=== PATIENT | female | born 1990 | race Caucasian/White ===

== ENCOUNTER 2016-07-18 23:06 | Emergency (ER) | payer OTHER ==
[~2016-07-18 23:06] MED LIST: NS 1,000 ML IV ONE
[2016-07-18] MEDS ORDERED: fentaNYL 100 MCG/2 ML INJ IVP ONE (23:10)
--- NOTE | 2016-07-18 23:13 | EDPHY ---
H & P Time Seen by Provider: 07/18/16 23:09 HPI/ROS: CHIEF COMPLAINT: Right elbow injury possible dislocation HISTORY OF PRESENT ILLNESS: 25-year-old female arrives via ambulance complaining of acute right elbow pain, possible dislocation after she was in door Walker ring height of approximately 9 feet, landed on her outstretched right hand, complaining of immediate right elbow pain, possible dislocation. She was splinted in 90 degrees by EMS, given Versed and fentanyl. Complaining of continued pain. No paresthesia. No proximal distal pain or injury. No head injury. No wrist pain or injury. PHYSICAL EXAM (Prior to examination, patient consented to physical exam, hands were washed and my usual and customary physical exam procedures followed) 1) GENERAL: Well-developed, well-nourished, alert and oriented. Appears to be in no acute distress. 2) HEAD: Normocephalic 3) HEENT: Pupils equal, round, reactive to light bilaterally. 4) LUNGS: Breathing comfortably. 5) MUSCULOSKELETAL: Right upper extremity posterior same splint in place. Soft compartments. Normal coloration. There is step-off deformity posterior elbow consistent with dislocation 6) SKIN: Intact. 7) VASCULAR: pulses and cap refill present are brisk 8) NEUROLOGIC: Radial, ulnar, median nerve function intact with no deficits appreciated on exam DIFFERENTIAL DIAGNOSIS: in no particular order including but not limited to fracture, sprain, compartment syndrome Xray of the right elbow interpreted by myself: Posterior dislocation ] Constitutional: Initial Vital Signs O2 Sat (%) 98 07/18/16 23:10 O2 Delivery Mode Room Air O2 (L/minute) 2 Allergies/Adverse Reactions: No Known Allergies Allergy (Unverified 07/18/16 23:12) Home Medications: Medication Instructions Recorded Hydrocodone/APAP 5/325 [Max 1 tab PO Q6 PRN #15 tab 07/18/16 5/325 (RX)] MDM/Departure - MDM Procedures: Procedure: Dislocation reduction. Procedural sedation provided by . The dislocation of the right elbow was reduced using traction and counter traction technique without complications. Post reduction the patient's neurovascular exam is normal. Post reduction x-ray demonstrates reduction of the joint to the anatomic position. The procedure was performed by myself. Procedure: Splint A long-arm posterior Orthoglass splint and sling was applied by ER broadcast maintenance technician. After application of the splint I returned and re-examined the patient. The splint was adequately immobilizing the joint and distal to the splint the patient's circulation and sensation were intact. Patient shows no signs of compartment syndrome. Was given orthopedic precautions. Medications Given: Discontinued Medications Fentanyl (Sublimaze) 100 mcg IVP EDNOW ONE Stop: 07/18/16 23:11 Last Admin: 07/18/16 23:20 Dose: 100 mcg Hydromorphone HCl (Dilaudid) 1 mg IVP EDNOW ONE Stop: 07/18/16 23:16 Last Admin: 07/18/16 23:20 Dose: 1 mg ED Course/Re-evaluation: Re-evaluation with serial exams. She remains neurovascularly intact. Plan will be follow up with Orthopedics. Given strict orthopedic precautions instructions. No evidence of compartment syndrome at this time. - Depart Disposition: Home, Routine, Self-Care Clinical Impression: Mountain,rock/wall climb Dislocation of right elbow Qualifiers: Encounter type: initial encounter Qualified Code(s): S53.104A - Unspecified dislocation of right ulnohumeral joint, initial encounter Condition: Good Instructions: Elbow Dislocation (ED) Additional Instructions: Return to the ER immediately if you experience discoloration, have worsening pain, numbness, tingling, or any other symptoms that concern you. If you received x-rays in the emergency department today, be advised, that ligamentous , tendon, muscular, and other non-bony injury cannot be fully ruled out. Try to keep your affected extremity elevated above the level of your chest, and keep cold packs on the affected area, for the next 48 hours. Prescriptions: Hydrocodone/APAP 5/325 [Max 5/325 (RX)] 1 tab PO Q6 PRN #15 tab PRN Reason: Pain, Severe Referrals: Adam Ding MD [Medical Doctor] - 2-3 days, call for appt. Grady Bruce MD [Medical Doctor] - 2-3 days, call for appt. (Dr. Grady Bruce is orthopedic surgeon)
[2016-07-18] MEDS ORDERED: HYDROmorphONE/DILAUDID 1 MG/ML SYR IVP ONE ×2 (23:15→23:46)
[2016-07-18 23:16] VITALS: TEMP 97.9
[2016-07-18] MEDS ORDERED: HYDROmorphONE/DILAUDID 1 MG/ML SYR ONE (23:17)
[2016-07-18] MEDS ORDERED: PROPOFOL 200 MG/20 ML VIAL ONE (23:22)
[2016-07-18] MEDS ORDERED: HYDROCOD/APAP 5/325 PREPACK#6 BTL TAKEHOME ONE (23:51)
[2016-07-19] MEDS ORDERED: ONDANSETRON 4 MG/2 ML VIAL ONE (00:32)
[2016-07-19] MEDS ORDERED: ONDANSETRON 4 MG/2 ML VIAL IVP ONE (00:35)
[2016-07-19 00:37] VITALS: RESP 16
[2016-07-19 03:28] VITALS: BP 144/93; PULSE 81; O2SAT 96
== END 2016-07-19 03:28 | disposition home or self-care (01) ==
PROC: 0RSLXZZ Reposition Right Elbow Joint, External Approach (ICD-10-PCS; principal; 2016-07-18)
DX: S53.124A Posterior dislocation of right ulnohumeral joint, initial encounter (principal); W17.89XA Other fall from one level to another, initial encounter; Y93.31 Activity, mountain climbing, rock climbing and wall climbing
CPT/HCPCS: 96374; J1170; J2405; J2704; J3010

== ENCOUNTER 2018-01-29 00:09 | Emergency (ER) | payer OTHER ==
--- NOTE | 2018-01-29 00:49 | EDPHY ---
H & P Stated Complaint: Chest pain, back pain, bilateral rib pains, no trauma Time Seen by Provider: 01/29/18 00:49 HPI/ROS: HPI CHIEF COMPLAINT: Chest pain, back pain HISTORY OF PRESENT ILLNESS: 27-year-old female, otherwise healthy with no significant medical history she presents emergency room with back pain and chest pain. Patient states that around 4 hr ago she was working on a computer and she developed mid thoracic back pain. Uncomfortable sensation. And then started feeling epigastric pain across her epigastric region. Burning pain and sharp stabbing pain. She became anxious and decided come the emergency room. It is still present. It has been there for about 4 hr. She has not had any vomiting. Denies any pleuritic pain. Denies trauma. Denies fever, denies productive cough. Denies arm pain or neck pain. Past Medical History: Denies significant medical history Past Surgical History: Denies significant surgical history Social History: Denies drugs alcohol tobacco. Family History: Noncontributory ROS REVIEW OF SYSTEMS: 10 Systems were reviewed and negative with the exception of the elements mentioned in the history of present illness. Exam Constitutional appears anxious, nontoxic, triage nursing summary reviewed, vital signs reviewed, awake/alert. Eyes normal conjunctivae and sclera, EOMI, PERRLA. HENT normal inspection, atraumatic, moist mucus membranes, no epistaxis, neck supple/ no meningismus, no raccoon eyes. Respiratory clear to auscultation bilaterally, normal breath sounds, no respiratory distress, no wheezing. Cardiovascular rate normal, regular rhythm, no murmur, no edema, distal pulses normal. Gastrointestinal soft, non-tender, no rebound, no guarding, normal bowel sounds, no distension, no pulsatile mass. Genitourinary no CVA tenderness. Musculoskeletal no midline vertebral tenderness, full range of motion, no calf swelling, no tenderness of extremities, no meningismus, good pulses, neurovascularly intact. Skin pink, warm, & dry, no rash, skin atraumatic. Neurologic awake, alert and oriented x 3, AAOx3, moves all 4 extremities equally, motor intact, sensory intact, CN II-XII intact, normal cerebellar, normal vision, normal speech. Psychiatric normal mood/affect. Heme/Lymph/Immune no lymphadenopathy. Differential diagnosis includes but is not limited to: ACS, atypical chest pain , pneumothorax, pneumonia, pulmonary embolism, aortic dissection, congestive heart failure, tumor, musculoskeletal pain, esophageal pain, GERD, peptic ulcer disease, pancreatitis Medical Decision Making: Plan for this patient IV establishment: GI cocktail to see if this improves her symptoms, check lipase, chemistry, CBC, troponin, D- dimer, chest x-ray, EKG. Ativan for anxiety, fluid bolus and re-evaluate Re-evaluation: EKG interpretation by me on record in [place] system. Impression time of EKG 0029, sinus rhythm rate of 94 without any signs of acute ischemia no ST elevation no ST depression no significant T-wave abnormalities. ED x-ray chest one view: Negative for cardiopulmonary disease. Troponin noted to be 0.00. D-dimer negative. 0300: Patient re-evaluated this time is resting comfortably without any chest pain or back pain or shortness of breath. She states she is feeling much better after IV Ativan 1 mg. She states when she got the Ativan her symptoms all resolved. She is now requesting be discharged home. D-dimer negative, troponin 0. EKG nonischemic. Chest x-ray unremarkable. Vital signs are stable. Return precautions discussed with the patient. Source: Patient - Personal History LMP (Females 10-55): 1-7 Days Ago Current Tetanus Diphtheria and Acellular Pertussis (TDAP): Yes - Medical/Surgical History Hx Asthma: No Hx Chronic Respiratory Disease: No Hx Diabetes: No Hx Cardiac Disease: No Hx Renal Disease: No Hx Cirrhosis: No Hx Alcoholism: No Hx HIV/AIDS: No Hx Splenectomy or Spleen Trauma: No Other PMH: L arm surgery - Social History Smoking Status: Never smoked Constitutional: Initial Vital Signs Temperature (C) 36.6 C 01/29/18 00:16 Heart Rate 102 H 01/29/18 00:16 Respiratory Rate 18 01/29/18 00:16 Blood Pressure 147/110 H 01/29/18 00:16 O2 Sat (%) 97 01/29/18 00:16 O2 Delivery Mode Room Air Allergies/Adverse Reactions: No Known Allergies Allergy (Unverified 01/29/18 00:16) Home Medications: Medication Instructions Recorded Hydrocodone/APAP 5/325 [Jackpot 1 tab PO Q6 PRN #15 tab 07/18/16 5/325 (RX)] Medical Decision Making - Data Points Laboratory Results: Laboratory Results 01/29/18 00:30 01/29/18 00:30 01/29/18 01/29/18 01/29/18 01:14 00:30 00:30 WBC RBC Hgb Hct MCV MCH MCHC RDW Plt Count MPV Neut % (Auto) Lymph % (Auto) [place] % (Auto) Eos % (Auto) Baso % (Auto) Nucleat RBC Rel Count Absolute Neuts (auto) Absolute Lymphs (auto) Absolute Monos (auto) Absolute Eos (auto) Absolute Basos (auto) Absolute Nucleated RBC Immature Gran % Immature Gran # PT INR APTT D-Dimer Sodium 141 mEq/L mEq/L (135-145) Potassium 3.6 mEq/L mEq/L (3.3-5.0) Chloride 105 mEq/L mEq/L (97-110) Carbon Dioxide 26 mEq/l mEq/l (22-31) Anion Gap 10 mEq/L mEq/L (8-16) BUN 13 mg/dL mg/dL (7-23) Creatinine 0.8 mg/dL mg/dL (0.6-1.0) Estimated GFR > 60 Glucose 109 mg/dL H mg/dL (70-100) Calcium 9.1 mg/dL mg/dL (8.5-10.4) Magnesium 1.9 mg/dL mg/dL (1.6-2.3) Total Bilirubin 0.4 mg/dL mg/dL (0.1-1.4) Conjugated Bilirubin 0.1 mg/dL mg/dL (0.0-0.5) Unconjugated Bilirubin 0.3 mg/dL mg/dL (0.0-1.1) AST 28 IU/L IU/L (14-46) ALT 29 IU/L IU/L (9-52) Alkaline Phosphatase 95 IU/L IU/L (38-126) POC Troponin I 0.00 ng/mL ng/mL (0.00-0.08) NT-Pro-B Natriuret Pep 52 pg/mL pg/mL (0-125) Total Protein 6.5 g/dL g/dL (6.3-8.2) Albumin 4.4 g/dL g/dL (3.5-5.0) Lipase 111 IU/L IU/L (23-300) Beta HCG, Qual NEGATIVE 09/05/18 09/05/18 00:30 00:30 WBC 6.80 10^3/uL 10^3/uL (3.80-9.50) RBC 5.56 10^6/uL H 10^6/uL (4.18-5.33) Hgb 12.7 g/dL g/dL (12.6-16.3) Hct 40.6 % % (38.0-47.0) MCV 73.0 fL L fL (81.5-99.8) MCH 22.8 pg L pg (27.9-34.1) MCHC 31.3 g/dL L g/dL (32.4-36.7) RDW 18.6 % H % (11.5-15.2) Plt Count 248 10^3/uL 10^3/uL (150-400) MPV 8.7 fL fL (8.7-11.7) Neut % (Auto) 75.1 % H % (39.3-74.2) Lymph % (Auto) 20.0 % % (15.0-45.0) [place] % (Auto) 3.4 % L % (4.5-13.0) Eos % (Auto) 0.9 % % (0.6-7.6) Baso % (Auto) 0.3 % % (0.3-1.7) Nucleat RBC Rel Count 0.0 % % (0.0-0.2) Absolute Neuts (auto) 5.11 10^3/uL 10^3/uL (1.70-6.50) Absolute Lymphs (auto) 1.36 10^3/uL 10^3/uL (1.00-3.00) Absolute Monos (auto) 0.23 10^3/uL L 10^3/uL (0.30-0.80) Absolute Eos (auto) 0.06 10^3/uL 10^3/uL (0.03-0.40) Absolute Basos (auto) 0.02 10^3/uL 10^3/uL (0.02-0.10) Absolute Nucleated RBC 0.00 10^3/uL 10^3/uL (0-0.01) Immature Gran % 0.3 % % (0.0-1.1) Immature Gran # 0.02 10^3/uL 10^3/uL (0.00-0.10) PT 13.2 SEC SEC (12.0-15.0) INR 0.98 (0.83-1.16) APTT 27.4 SEC SEC (23.0-38.0) D-Dimer 0.34 ug/mLFEU ug/mLFEU (0.00-0.50) Sodium Potassium Chloride Carbon Dioxide Anion Gap BUN Creatinine Estimated GFR Glucose Calcium Magnesium Total Bilirubin Conjugated Bilirubin Unconjugated Bilirubin AST ALT Alkaline Phosphatase POC Troponin I NT-Pro-B Natriuret Pep Total Protein Albumin Lipase Beta HCG, Qual Medications Given: Discontinued Medications Al Hydroxide/Mg Hydroxide (Maalox Susp) 30 ml PO ONCE ONE Stop: 01/29/18 01:10 Last Admin: 01/29/18 01:17 Dose: 30 ml Hyoscyamine Sulfate (Levsin, Hyomax-Sl) 0.25 mg PO ONCE ONE Stop: 01/29/18 01:10 Last Admin: 01/29/18 01:17 Dose: 0.25 mg Sodium Chloride (Ns) 1,000 mls @ 0 mls/hr IV EDNOW ONE; Wide Open PRN Reason: Protocol Stop: 01/29/18 01:08 Last Admin: 01/29/18 01:16 Dose: 1,000 mls Lidocaine (Lidocaine 2% Viscous) 15 ml PO ONCE ONE Stop: 01/29/18 01:10 Last Admin: 01/29/18 01:17 Dose: 15 ml Lorazepam (Ativan Injection) 0.5 mg IVP EDNOW ONE Stop: 01/29/18 01:10 Last Admin: 01/29/18 01:59 Dose: 0.5 mg Point of Care Test Results: Chemistry 01/29/18 01:14 POC Troponin I 0.00 ng/mL ng/mL (0.00-0.08) Departure - Departure Disposition: Home, Routine, Self-Care Clinical Impression: Anxiety Condition: Good Instructions: Anxiety (ED) Additional Instructions: 1. Return emergency room if you have worsening symptoms questions or concerns includes worsening pain shortness of breath, chest pain, fever. Referrals: NONE *PRIMARY CARE P,. [Primary Care Provider] - As per Instructions [facility],. [Clinic] - As per Instructions
[2018-01-29] MEDS ORDERED: NS 1,000 ML IV ONE (01:07)
[2018-01-29] MEDS ORDERED: MAG HYDROX/AL HYDROX/SIMETH 30 ML UDCUP PO ONE (01:09)
[2018-01-29] MEDS ORDERED: LORazepam 2 MG/ML INJ IVP ONE (01:09)
[2018-01-29] MEDS ORDERED: HYOSCYAMINE SULFATE 0.125 MG TAB PO ONE (01:09)
[2018-01-29] MEDS ORDERED: LIDOCAINE 2% VISCOUS 15 ML UDCUP PO ONE (01:09)
[2018-01-29 01:17] LABS: PLATELET COUNT 248 10^3/uL (150-400)
[2018-01-29 01:22] LABS: INR 0.98 (0.83-1.16); PROTIME(PATIENT) 13.2 SEC (12.0-15.0)
[2018-01-29 03:18] VITALS: BP 134/78
--- NOTE | 2018-01-29 23:09 | CPEKG ---
Test Reason : OPEN Blood Pressure : / mmHG Vent. Rate : 088 BPM Atrial Rate : 088 BPM P-R Int : 115 ms QRS Dur : 075 ms QT Int : 376 ms P-R-T Axes : 047 040 023 degrees QTc Int : 455 ms Sinus rhythm Confirmed by Chip Galan ([id number]) on 01/29/2018 11:08:13 PM Referred By: Confirmed By:Chip Galan
--- NOTE | 2018-01-29 23:09 | CPEKG ---
Test Reason : OPEN Blood Pressure : / mmHG Vent. Rate : 094 BPM Atrial Rate : 095 BPM P-R Int : 116 ms QRS Dur : 075 ms QT Int : 358 ms P-R-T Axes : 054 060 009 degrees QTc Int : 448 ms Sinus rhythm Borderline T wave abnormalities Confirmed by Chip Galan ([id number]) on 01/29/2018 11:08:13 PM Referred By: Confirmed By:Chip Galan
== END 2018-01-29 03:17 | disposition home or self-care (01) ==
DX: F41.9 Anxiety disorder, unspecified (principal)
CPT/HCPCS: 84484-PO; 96374; J2060